=== PATIENT | male | born 1975 | race Caucasian/White ===

== ENCOUNTER 2017-09-16 12:57 | Emergency (ER) | payer SELFPAY ==
--- NOTE | 2017-09-16 13:17 | EDPHY ---
H & P Time Seen by Provider: 09/16/17 12:59 HPI/ROS: Chief Complaint: Body pain, "skeleton is shrinking" HPI: 42-year-old male who is being brought in by EMS for possible mental health evaluation. Patient was at a restaurant this afternoon and other patients noted that he was grunting and seemed to be uncomfortable. When asked if he required assistance he inform staff that he did not feel that this was necessary. He states that he has been losing some weight and feels that his skeleton has been shrinking. EMS was called. They evaluated him and found his demeanor to be abnormal. There is some question of whether he had acute psychosis. Patient tells me that he feels that his skeleton is drinking any is having pain from this but does not want any medical evaluation for this. He is awake alert and oriented. He denies any hallucinations. Does not have a history of any psychiatric illness in the past. Is not suicidal or homicidal. He feels that he would prefer to manage his health issues on his own does not wish to have a medical evaluation at this time. Patient was not placed on a mental health hold. He is not paranoid. Denies visual or auditory hallucinations. Denies ideas of reference. He is quite lucid and very articulate. He is oriented to person place and time. Patient is refusing medical examination at this time. ROS: 10 point Review of Systems is negative except as noted in the HPI. PMH: Denies Social History: No smoking, occasional alcohol, no recreational drug use Family History: non-contributory Physical Exam: Gen: Awake, Alert, No Distress HEENT: Eyes: PERRLA, EOMI Mouth: Moist mucosa Neck: Supple, no JVD Chest: No distress Heart: Normal perfusion Abd: Normal inspection Ext: No deformity Skin: no rash Neuro: Moving all extremities Medical Decision Making ED Course/Re-evaluation: Patient being brought in by EMS for being found to be acting strangely in a restaurant. He was not placed on a mental health hold. He is awake alert. He has a right refuse medical care. While he does have strange physical complaints I do not find him to be acutely psychotic. He does not meet criteria for mental health hold at this time. Patient is free to refuse care. He will be discharged have encouraged him to follow up with primary care physician. Departure - Departure Disposition: Home, Routine, Self-Care Clinical Impression: Total body pain Condition: Good Instructions: Musculoskeletal Pain (ED) Additional Instructions: I recommend you follow up with primary care physician in 3-4 days for further evaluation Referrals: Celestino Can, [Medical Doctor] - As per Instructions
== END 2017-09-16 13:23 | disposition home or self-care (01) ==
DX: M79.1 Myalgia (principal)